=== PATIENT | male | born 1965 | race Hispanic/Latino ===

== ENCOUNTER → 2018-04-07 | Outpatient (CLI) | payer OTHER ==
[~2018-04-07] MED LIST: AEC81 PO; AMLO5TAB7 PO; ATOR40TA69 PO; CITA-107 PO; CLOP75TA32 PO; GLIP10TA9 PO; HYDR12.530 PO; LEVO25TA54 PO; METF-444 PO; METO-408 PO; NITR0.4T SL; POTA-79 PO; RANO500T3 PO; VALS80TA30 PO
== END | disposition home or self-care (01) ==
LOC: OIH 10:10
PROVIDERS: ATTEND Internal Medicine Cardiovascular Disease
DX: M47.894 Other spondylosis, thoracic region (principal); I25.2 Old myocardial infarction; R06.09 Other forms of dyspnea
CPT/HCPCS: 71046

== ENCOUNTER → 2018-10-22 | Outpatient (CLI) | payer MEDICARE, OTHER ==
[~2018-10-22] MED LIST changes: +ALPR1TAB7 PO; -AMLO5TAB7 PO; -ATOR40TA69 PO; -CITA-107 PO; +EMPA25TA PO; +ESCI20TA36 PO; -HYDR12.530 PO; +LAMO25TA9 PO; +LISI10TA7 PO; -NITR0.4T SL; -POTA-79 PO; +TAMS0.4C32 PO; +TRAZ-185 PO; -VALS80TA30 PO
== END | disposition home or self-care (01) ==
LOC: RAH 08:50
PROVIDERS: ATTEND Internal Medicine
DX: I11.9 Hypertensive heart disease without heart failure (principal); Z95.1 Presence of aortocoronary bypass graft
CPT/HCPCS: 93306

== ENCOUNTER 2019-02-12 10:29 | Emergency (ER) | payer MEDICARE ==
[2019-02-12 10:45] LABS: BASOPHILS % (AUTO) 0.9 % (0.0-5.0); EOSINOPHILS % (AUTO) 2.2 % (0.0-8.0); LYMPHOCYTES % (AUTO) 16.7 % (21.0-51.0); MEAN CORPUSCULAR HEMOGLOBIN 27.1 pg (27.0-33.0); MEAN CORPUSCULAR HGB CONC 33.3 g/dL (32.0-36.0); MEAN CORPUSCULAR VOLUME 81.4 fL (79-99); MONOCYTES % (AUTO) 7.7 % (3.0-13.0); NEUTROPHILS % (AUTO) 72.5 % (40.0-77.0); PLATELET COUNT (AUTO) 249 K/uL (130-400); RED BLOOD CELL COUNT(AUTO) 4.79 MIL/uL (4.50-6.20); RED CELL DISTRIBUTION WIDTH 16.1 % (11.0-15.5); WHITE BLOOD COUNT (AUTO) 9.6 K/uL (4.8-10.8)
[2019-02-12 10:55] LABS: CREATININE 1.6 mg/dL (0.5-1.5); POTASSIUM 5.6 mmol/L (3.5-5.1)
[2019-02-12 10:58] LABS: INR 0.93 (0.85-1.15); PARTIAL THROMBOPLASTIN TIME 24.5 SEC (26.3-35.5); PROTHROMBIN TIME 9.8 SEC (9.6-11.6)
[2019-02-12 11:00] LABS: ALBUMIN 3.4 g/dL (3.5-5.0); BILIRUBIN,DIRECT 0.1 mg/dL (0.0-0.3); BILIRUBIN,TOTAL 0.5 mg/dL (0.2-1.0); TOTAL PROTEIN, SERUM 7.1 g/dL (6.0-8.3)
[2019-02-12 12:01] LABS: APPEARANCE,URINE Clear (CLEAR); BILIRUBIN,URINE Negative (NEGATIVE); COLOR,URINE Yellow (YELLOW); GLUCOSE, URINE (UA) >=1000 mg/dL (NEGATIVE); KETONES,URINE Negative (NEGATIVE); LEUKOCYTE ESTERASE ,URINE Negative (NEGATIVE); NITRATE,URINE Negative (NEGATIVE); OCCULT BLOOD,URINE Negative (NEGATIVE); PROTEIN,URINE Negative (NEGATIVE)
[2019-02-12 12:23] LABS: BACTERIA,URINE None Seen /HPF (None Seen); RBC,URINE None Seen /HPF (0-1); SQUAMOUS EPITHELIAL CELL,UR None Seen /HPF (0-2); WBC,URINE None Seen /HPF (0-1)
[2019-02-12] MEDS ORDERED: LORAZEPAM 2 MG/ML 1 ML VIAL ONE (12:53)
== END 2019-02-12 18:41 | disposition short-term general hospital (02) ==
LOC: EDH 10:29
DX: I12.9 Hypertensive chronic kidney disease with stage 1 through stage 4 chronic kidney disease, or unspecified chronic kidney disease (principal); E11.22 Type 2 diabetes mellitus with diabetic chronic kidney disease; N18.9 Chronic kidney disease, unspecified; I63.9 Cerebral infarction, unspecified; E11.65 Type 2 diabetes mellitus with hyperglycemia; E78.5 Hyperlipidemia, unspecified; I25.10 Atherosclerotic heart disease of native coronary artery without angina pectoris; Z95.1 Presence of aortocoronary bypass graft
CPT/HCPCS: 36415; 70450; 70544; 70547; 70551; 71045; 80048; 80076; 81001; 82550; 82948; 83721; 84484; 85025; 85610; 85730; 93005; 96372; 99285; J2060

== ENCOUNTER → 2019-08-24 | Outpatient (CLI) | payer MEDICARE, OTHER ==
--- NOTE | 2019-08-24 14:20 | NUR ---
PATIENT HAS SCAB TO RIGHT LATERAL ANKLE; BETADINE CAST APPLIED ORDERED. Addendum: 08/24/19 at 1811 by NORMA MTZ RN/TINO Amended: Links added.
[2019-08-24 17:52] VITALS: BP 157/90
== END | disposition home or self-care (01) ==
LOC: WHH 13:30
PROVIDERS: ATTEND Specialist
DX: E11.621 Type 2 diabetes mellitus with foot ulcer (principal); I70.243 Atherosclerosis of native arteries of left leg with ulceration of ankle; L97.321 Non-pressure chronic ulcer of left ankle limited to breakdown of skin; E11.22 Type 2 diabetes mellitus with diabetic chronic kidney disease; I13.0 Hypertensive heart and chronic kidney disease with heart failure and stage 1 through stage 4 chronic kidney disease, or unspecified chronic kidney disease; N18.3 Chronic kidney disease, stage 3 (moderate); I50.9 Heart failure, unspecified; I25.10 Atherosclerotic heart disease of native coronary artery without angina pectoris; E78.5 Hyperlipidemia, unspecified; E66.9 Obesity, unspecified; F32.9 Major depressive disorder, single episode, unspecified; Z95.1 Presence of aortocoronary bypass graft; Z86.73 Personal history of transient ischemic attack (TIA), and cerebral infarction without residual deficits
CPT/HCPCS: 87070; 87077 ×3; 87186 ×3; A4450; A6260; G0463

== ENCOUNTER → 2019-08-31 | Outpatient (CLI) | payer OTHER ==
[~2019-08-31] MED LIST changes: +GENTAMICIN SULFATE 15 GM CREAM.GM. TP ONE; +LIDOCAINE/PRILOCAINE CREAM 5GM TUBE TP ONE
[2019-08-31 14:42] VITALS: BP 141/78
== END | disposition home or self-care (01) ==
LOC: WHH 13:30
PROVIDERS: ATTEND Specialist
DX: E11.622 Type 2 diabetes mellitus with other skin ulcer (principal); I70.243 Atherosclerosis of native arteries of left leg with ulceration of ankle; L97.321 Non-pressure chronic ulcer of left ankle limited to breakdown of skin; I25.10 Atherosclerotic heart disease of native coronary artery without angina pectoris; E11.22 Type 2 diabetes mellitus with diabetic chronic kidney disease; I13.0 Hypertensive heart and chronic kidney disease with heart failure and stage 1 through stage 4 chronic kidney disease, or unspecified chronic kidney disease; N18.3 Chronic kidney disease, stage 3 (moderate); I50.9 Heart failure, unspecified; E78.5 Hyperlipidemia, unspecified; E66.9 Obesity, unspecified; F32.9 Major depressive disorder, single episode, unspecified; Z95.1 Presence of aortocoronary bypass graft; Z86.73 Personal history of transient ischemic attack (TIA), and cerebral infarction without residual deficits
CPT/HCPCS: A6209; G0463; J3490

== ENCOUNTER → 2019-09-07 | Outpatient (CLI) | payer OTHER ==
[~2019-09-07] MED LIST changes: +ALIR150P SQ; +CITA40TA6 PO; +DICL50TA7 PO; +DULA1.5P SQ; +GABA300C PO; -GENTAMICIN SULFATE 15 GM CREAM.GM. TP ONE; +INSU100V37 SQ; +LIDOCAINE HCL 2% JELLY 5 ML TP ONE; -LIDOCAINE/PRILOCAINE CREAM 5GM TUBE TP ONE; +NITR0.4T SL; +RIVA2.5T PO; +ROSU5TAB12 PO
[2019-09-07 15:03] VITALS: BP 131/82
== END | disposition home or self-care (01) ==
LOC: WHH 13:00
PROVIDERS: ATTEND Specialist
DX: E11.622 Type 2 diabetes mellitus with other skin ulcer (principal); I70.243 Atherosclerosis of native arteries of left leg with ulceration of ankle; L97.322 Non-pressure chronic ulcer of left ankle with fat layer exposed; E11.22 Type 2 diabetes mellitus with diabetic chronic kidney disease; I13.0 Hypertensive heart and chronic kidney disease with heart failure and stage 1 through stage 4 chronic kidney disease, or unspecified chronic kidney disease; N18.3 Chronic kidney disease, stage 3 (moderate); I50.9 Heart failure, unspecified; I25.10 Atherosclerotic heart disease of native coronary artery without angina pectoris; E78.5 Hyperlipidemia, unspecified; E66.9 Obesity, unspecified; F32.9 Major depressive disorder, single episode, unspecified; Z95.1 Presence of aortocoronary bypass graft; Z86.73 Personal history of transient ischemic attack (TIA), and cerebral infarction without residual deficits
CPT/HCPCS: 11042; 11045; A6209

== ENCOUNTER → 2019-09-14 | Outpatient (CLI) | payer OTHER ==
[~2019-09-14] MED LIST changes: -ALIR150P SQ; -CITA40TA6 PO; -DICL50TA7 PO; -DULA1.5P SQ; -GABA300C PO; -INSU100V37 SQ; -NITR0.4T SL; -RIVA2.5T PO; -ROSU5TAB12 PO
[2019-09-14 15:27] VITALS: BP 140/90
== END | disposition home or self-care (01) ==
LOC: WHH 13:30
PROVIDERS: ATTEND Specialist
DX: E11.622 Type 2 diabetes mellitus with other skin ulcer (principal); I70.243 Atherosclerosis of native arteries of left leg with ulceration of ankle; L97.322 Non-pressure chronic ulcer of left ankle with fat layer exposed; E11.22 Type 2 diabetes mellitus with diabetic chronic kidney disease; I13.0 Hypertensive heart and chronic kidney disease with heart failure and stage 1 through stage 4 chronic kidney disease, or unspecified chronic kidney disease; N18.3 Chronic kidney disease, stage 3 (moderate); I50.9 Heart failure, unspecified; I25.10 Atherosclerotic heart disease of native coronary artery without angina pectoris; E78.5 Hyperlipidemia, unspecified; E66.9 Obesity, unspecified; F32.9 Major depressive disorder, single episode, unspecified; Z95.1 Presence of aortocoronary bypass graft; Z86.73 Personal history of transient ischemic attack (TIA), and cerebral infarction without residual deficits
CPT/HCPCS: 11042; 11045; 87070; 87077 ×2; 87186 ×2; A6209

== ENCOUNTER → 2019-09-28 | Outpatient (CLI) | payer OTHER ==
[~2019-09-28] MED LIST changes: -LIDOCAINE HCL 2% JELLY 5 ML TP ONE
[2019-09-28 15:58] VITALS: BP 115/79
== END | disposition home or self-care (01) ==
LOC: WHH 13:30
PROVIDERS: ATTEND Specialist
DX: E11.622 Type 2 diabetes mellitus with other skin ulcer (principal); I70.243 Atherosclerosis of native arteries of left leg with ulceration of ankle; L97.325 Non-pressure chronic ulcer of left ankle with muscle involvement without evidence of necrosis; E11.22 Type 2 diabetes mellitus with diabetic chronic kidney disease; I13.0 Hypertensive heart and chronic kidney disease with heart failure and stage 1 through stage 4 chronic kidney disease, or unspecified chronic kidney disease; N18.3 Chronic kidney disease, stage 3 (moderate); I50.9 Heart failure, unspecified; I25.10 Atherosclerotic heart disease of native coronary artery without angina pectoris; E78.5 Hyperlipidemia, unspecified; E66.9 Obesity, unspecified; F32.9 Major depressive disorder, single episode, unspecified; Z95.1 Presence of aortocoronary bypass graft; Z86.73 Personal history of transient ischemic attack (TIA), and cerebral infarction without residual deficits
CPT/HCPCS: G0463

== ENCOUNTER → 2019-10-12 | Outpatient (CLI) | payer OTHER ==
[~2019-10-12] MED LIST changes: +LIDOCAINE HCL 4% LTA SOL 4 ML VIAL TP ONE
[2019-10-12 15:35] VITALS: BP 128/72
--- NOTE | 2019-10-27 15:45 | NUR ---
10-27-2019 Correction made to documentation after review.
== END | disposition home or self-care (01) ==
LOC: WHH 13:30
PROVIDERS: ATTEND Specialist
DX: E11.622 Type 2 diabetes mellitus with other skin ulcer (principal); I70.243 Atherosclerosis of native arteries of left leg with ulceration of ankle; L97.325 Non-pressure chronic ulcer of left ankle with muscle involvement without evidence of necrosis; E11.22 Type 2 diabetes mellitus with diabetic chronic kidney disease; I13.0 Hypertensive heart and chronic kidney disease with heart failure and stage 1 through stage 4 chronic kidney disease, or unspecified chronic kidney disease; N18.3 Chronic kidney disease, stage 3 (moderate); I50.9 Heart failure, unspecified; I25.10 Atherosclerotic heart disease of native coronary artery without angina pectoris; E78.5 Hyperlipidemia, unspecified; E66.9 Obesity, unspecified; F32.9 Major depressive disorder, single episode, unspecified; Z95.1 Presence of aortocoronary bypass graft; Z86.73 Personal history of transient ischemic attack (TIA), and cerebral infarction without residual deficits
CPT/HCPCS: 11042; 11045; A6209

== ENCOUNTER → 2019-10-26 | Outpatient (CLI) | payer OTHER ==
[~2019-10-26] MED LIST changes: -LIDOCAINE HCL 4% LTA SOL 4 ML VIAL TP ONE
[2019-10-26 15:32] VITALS: BP 136/90
== END | disposition home or self-care (01) ==
LOC: WHH 13:30
PROVIDERS: ATTEND Specialist
DX: I70.243 Atherosclerosis of native arteries of left leg with ulceration of ankle (principal); E11.622 Type 2 diabetes mellitus with other skin ulcer; L97.325 Non-pressure chronic ulcer of left ankle with muscle involvement without evidence of necrosis; E11.22 Type 2 diabetes mellitus with diabetic chronic kidney disease; I13.0 Hypertensive heart and chronic kidney disease with heart failure and stage 1 through stage 4 chronic kidney disease, or unspecified chronic kidney disease; N18.3 Chronic kidney disease, stage 3 (moderate); I50.9 Heart failure, unspecified; E11.51 Type 2 diabetes mellitus with diabetic peripheral angiopathy without gangrene; I25.10 Atherosclerotic heart disease of native coronary artery without angina pectoris; E78.5 Hyperlipidemia, unspecified; E66.9 Obesity, unspecified; F32.9 Major depressive disorder, single episode, unspecified; Z95.1 Presence of aortocoronary bypass graft; Z86.73 Personal history of transient ischemic attack (TIA), and cerebral infarction without residual deficits
CPT/HCPCS: G0463

== ENCOUNTER → 2019-11-09 | Outpatient (CLI) | payer OTHER ==
[~2019-11-09] MED LIST changes: +ALIR150P SQ; +CITA40TA6 PO; +DICL50TA7 PO; +DULA1.5P SQ; +GABA300C PO; +INSU100V37 SQ; +NITR0.4T SL; +RIVA2.5T PO; +ROSU5TAB12 PO
[2019-11-09 14:54] VITALS: BP 126/68
== END | disposition home or self-care (01) ==
LOC: WHH 14:00
PROVIDERS: ATTEND Specialist
DX: I70.243 Atherosclerosis of native arteries of left leg with ulceration of ankle (principal); E11.622 Type 2 diabetes mellitus with other skin ulcer; L97.325 Non-pressure chronic ulcer of left ankle with muscle involvement without evidence of necrosis; E11.22 Type 2 diabetes mellitus with diabetic chronic kidney disease; I13.0 Hypertensive heart and chronic kidney disease with heart failure and stage 1 through stage 4 chronic kidney disease, or unspecified chronic kidney disease; N18.3 Chronic kidney disease, stage 3 (moderate); I50.9 Heart failure, unspecified; E11.51 Type 2 diabetes mellitus with diabetic peripheral angiopathy without gangrene; I25.10 Atherosclerotic heart disease of native coronary artery without angina pectoris; E78.5 Hyperlipidemia, unspecified; E66.9 Obesity, unspecified; F32.9 Major depressive disorder, single episode, unspecified; Z95.1 Presence of aortocoronary bypass graft; Z86.73 Personal history of transient ischemic attack (TIA), and cerebral infarction without residual deficits
CPT/HCPCS: 11042; 11045; 87070; 87077; 87186

== ENCOUNTER → 2020-02-03 | Outpatient (CLI) | payer OTHER ==
--- NOTE | 2020-01-24 11:07 | NUR ---
PROCEDURE WAS CX FROM SCHEDULE DOS
[~2020-02-03] MED LIST changes: -ALIR150P SQ; +AMINOPHYLLINE 500 MG in SODIUM CHLORIDE 0.9% 100 ML IV SCH; +AMINOPHYLLINE 500 MG/20 ML VIAL IV SCH; -CITA40TA6 PO; -DICL50TA7 PO; -DULA1.5P SQ; -GABA300C PO; -INSU100V37 SQ; -NITR0.4T SL; +REGADENOSON 0.4 MG/5 ML PF SYG IVP SCH; -RIVA2.5T PO; -ROSU5TAB12 PO
[2020-02-03 11:23] VITALS: BP 148/92
[2020-02-03 11:25] VITALS: BP 144/90
[2020-02-03 11:28] VITALS: BP 125/76
--- NOTE | 2020-02-03 11:30 | NUR ---
PT WITH COMPLAINTS OF TIGHTNESS AND PAIN TO JAW REMAINING IMMEDIATELY POST LEXISCAN, B/P 144/90 P 98 AMINOPHYLLINE 50MG GIVEN SLOW IV PUSH @ 1525. 1121 PT REPORTS ALL SYMPTOMS FROM LEXISCAN HAVE SUBSIDED. B/P 125/76 P 87
== END | disposition home or self-care (01) ==
LOC: SHCH 08:56
PROVIDERS: ATTEND Internal Medicine Cardiovascular Disease
DX: R07.9 Chest pain, unspecified (principal)
CPT/HCPCS: 78452; 93017; 96374; A9500 ×2; J2785; J0280

== ENCOUNTER 2020-03-16 09:17 | Observation (INO) | payer OTHER ==
[2020-03-14 12:22] LABS: BASOPHILS % (AUTO) 0.6 % (0.0-5.0); EOSINOPHILS % (AUTO) 3.7 % (0.0-8.0); HEMATOCRIT 41.5 % (42-54); LYMPHOCYTES % (AUTO) 25.5 % (21.0-51.0); MEAN CORPUSCULAR HEMOGLOBIN 25.9 pg (27.0-33.0); MEAN CORPUSCULAR HGB CONC 30.8 g/dL (32.0-36.0); MONOCYTES % (AUTO) 7.6 % (3.0-13.0); NEUTROPHILS % (AUTO) 62.4 % (40.0-77.0); PLATELET COUNT (AUTO) 321 K/uL (130-400); RED BLOOD CELL COUNT(AUTO) 4.94 MIL/uL (4.50-6.20); RED CELL DISTRIBUTION WIDTH 15.5 % (11.0-15.5)
[2020-03-14 12:25] LABS: APPEARANCE,URINE Clear (CLEAR); BILIRUBIN,URINE Negative (NEGATIVE); COLOR,URINE Yellow (YELLOW); GLUCOSE, URINE (UA) >=1000 mg/dL (NEGATIVE); KETONES,URINE Negative (NEGATIVE); LEUKOCYTE ESTERASE ,URINE Negative (NEGATIVE); NITRATE,URINE Negative (NEGATIVE); OCCULT BLOOD,URINE Negative (NEGATIVE); PROTEIN,URINE Negative (NEGATIVE)
[2020-03-14 12:38] LABS: BACTERIA,URINE Rare /HPF (None Seen); RBC,URINE 0-1 /HPF (0-1); SQUAMOUS EPITHELIAL CELL,UR Rare /HPF (0-2); WBC,URINE 0-1 /HPF (0-1)
[2020-03-14 12:59] LABS: PARTIAL THROMBOPLASTIN TIME 25.9 SEC (26.3-35.5)
[2020-03-14 13:08] LABS: INR 0.9 (0.85-1.15); PROTHROMBIN TIME 9.8 SEC (9.6-11.6)
[2020-03-14 13:22] LABS: CREATININE 1.5 mg/dL (0.5-1.5); POTASSIUM 5.2 mmol/L (3.5-5.1)
[2020-03-15 11:47] VITALS: BP 181/98
--- NOTE | 2020-03-15 16:00 | NUR ---
RE: ABNORMAL LABS REPORTED ABNORMAL LAS TO DEEPAK ALLEN (K 5.2, BUN 24, CREAT 1.5, HGB 12.8, HCT 41.5). RECEIVED ORDERS TO REDRAW POTASSIUM IN AM.
[2020-03-16] VITALS (12 sets, daily range): BP systolic 108–140; BP diastolic 60–91
[~2020-03-16] VITALS: Ht 175.3 cm; Wt 112.5 kg
[~2020-03-16 09:17] MED LIST changes: -AEC81 PO; +ALIR150P SQ; -ALPR1TAB7 PO; -AMINOPHYLLINE 500 MG in SODIUM CHLORIDE 0.9% 100 ML IV SCH; -AMINOPHYLLINE 500 MG/20 ML VIAL IV SCH; +CITA40TA6 PO; +DICL50TA7 PO; +DULA1.5P SQ; -ESCI20TA36 PO; +GABA300C PO; +INSU100V37 SQ; -LAMO25TA9 PO; +NITR0.4T SL; -REGADENOSON 0.4 MG/5 ML PF SYG IVP SCH; +RIVA2.5T PO; +ROSU5TAB12 PO; +SODIUM CHLORIDE 0.9% 1000ML 1,000 ML IV ONE; +SODIUM CHLORIDE 0.9% 500ML 500 ML IV SCH; -TAMS0.4C32 PO
--- NOTE | 2020-03-16 10:15 | NUR ---
SKIN ULCER TO LEFT LOWER EXTREMITY WITH DRESSING DRY AND INTACT. PT SEES DR HONG . WOUND CARE DONE EVERY 2 DAYS AT HOME. HX STROKE LEFT SIDED WEAKNESS . Addendum: 03/16/20 at 1018 by HARMEET STRANGE RN Amended: Links added.
[2020-03-16] MEDS ORDERED: SODIUM BICARB 50MEQ 50ML VIAL 50 ML ONE (12:19)
[2020-03-16] MEDS ORDERED: LIDOCAINE HCL 2% 20ML ONE (12:20)
[2020-03-16] MEDS ORDERED: IODIXANOL 320 MG/ML 100 ML VIAL ONE (12:20)
[2020-03-16] MEDS ORDERED: IOHEXOL 350 MG/ML 100ML INFUS..BTL IV ONE ×3 (12:20→13:34)
[2020-03-16] MEDS ORDERED: NITROGLYCERIN 2 MG/VIAL VIAL IV ONE (12:20)
--- NOTE | 2020-03-16 12:25 | NUR ---
PROCEDURE PT TAKEN TO LYFT DRIVER FOR SCHEDULED PROCEDURE. NO DISTRESS NOTED
[2020-03-16] MEDS ORDERED: MIDAZOLAM HCL 1 MG/ML 2ML VIAL ONE (12:33)
[2020-03-16] MEDS ORDERED: FENTANYL CITRATE PF 50 MCG/1 ML 2ML VIAL ONE (12:33)
[2020-03-16] MEDS ORDERED: BIVALIRUDIN 250 MG/VIAL IV ONE (13:34)
[2020-03-16] MEDS ORDERED: PRASUGREL HCL 10 MG TABLET ONE (14:05)
[2020-03-16] MEDS ORDERED: ASPIRIN 81MG TAB.CHEW ONE (14:08)
--- NOTE | 2020-03-16 14:30 | NUR ---
post received pt back from rn cardiac cath, s/p c stent to distal RCA. Right groin with perclose closure device, dressing dry and intact. no bleeding hematoma. see post cath assessment. vs stable on arrival. pt instructed to maintain bedrest. call light within reach.
--- NOTE | 2020-03-16 15:30 | NUR ---
transfer pt transferred to room 406, report given to Rhea Rn , right groin with no bleeding or hematoma. bs was low post procedure given orange juice recheck bs 91 pt asymtomatic.
[2020-03-16] MEDS ORDERED: FUROSEMIDE 10 MG/ML 2ML VIAL ONE (15:35)
[2020-03-16] MEDS ORDERED: NITROGLYCERIN 0.4 MG SL TAB SL PRN (17:00)
[2020-03-16] MEDS ORDERED: TRAZODONE HCL 50 MG TAB PO PRN (17:00)
[2020-03-16] MEDS ORDERED: DICLOFENAC 50MG PO PRN (17:00)
[2020-03-16] MEDS ORDERED: ROSUVASTATIN 5MG PO SCH (21:00)
[2020-03-16] MEDS: RIVAROXABAN 2.5 MG TABLET PO SCH (22:16)
[2020-03-16] MEDS: RANOLAZINE 500 MG TAB.SR.12H PO SCH (22:16)
[2020-03-16] MEDS: METOPROLOL SUCCINATE 50 MG TAB.SR.24H PO SCH (22:17)
[2020-03-16] MEDS: GABAPENTIN 300 MG CAPSULE PO SCH (22:17)
[2020-03-17] VITALS: BP 130/84
[2020-03-17 04:00] VITALS: BP 140/70
[2020-03-17] MEDS: GABAPENTIN 300 MG CAPSULE PO SCH (05:42)
--- NOTE | 2020-03-17 05:47 | NUR ---
Right groin cardiac cath site remained soft with no hematoma; dressing clean, dry and intact. BLE/ankles with wound dressings both dry and intact. No acute distress this shift. Patient is in stable condition.
[2020-03-17 06:14] LABS: CREATININE 1.6 mg/dL (0.5-1.5); POTASSIUM 4.6 mmol/L (3.5-5.1)
[2020-03-17] MEDS ORDERED: LEVOTHYROXINE 50 MCG TABLET PO SCH (06:30)
[2020-03-17] MEDS ORDERED: GLIPIZIDE 5 MG TABLET PO SCH (07:30)
[2020-03-17 08:06] VITALS: BP 121/52
[2020-03-17] MEDS ORDERED: JARDIANCE 25MG PO SCH (09:00)
[2020-03-17] MEDS ORDERED: TRESIBA 10 UNITS PO SCH (09:00)
[2020-03-17] MEDS ORDERED: PRASUGREL HCL 10 MG TABLET PO SCH (09:00)
[2020-03-17] MEDS ORDERED: LISINOPRIL 10 MG TABLET PO SCH (09:00)
[2020-03-17] MEDS ORDERED: CITALOPRAM 20 MG TABLET PO SCH (09:00)
[2020-03-17] MEDS: METOPROLOL SUCCINATE 50 MG TAB.SR.24H PO SCH (09:59)
[2020-03-17] MEDS: RIVAROXABAN 2.5 MG TABLET PO SCH (09:59)
[2020-03-17] MEDS: RANOLAZINE 500 MG TAB.SR.12H PO SCH (10:00)
[2020-03-17 12:13] VITALS: BP 141/75
[2020-03-23] MEDS ORDERED: TRULICITY 1.5MG SQ SCH (09:00)
[2020-03-30] MEDS ORDERED: PRALUENT SQ SCH (09:00)
== END 2020-03-17 12:00 | disposition home or self-care (01) ==
LOC: DAH 09:17 → DAHIP 09:18 → 4BH 15:34
PROVIDERS: ADMIT Internal Medicine Cardiovascular Disease; ATTEND Internal Medicine Cardiovascular Disease
DX: I25.709 Atherosclerosis of coronary artery bypass graft(s), unspecified, with unspecified angina pectoris (principal); I25.2 Old myocardial infarction; E11.22 Type 2 diabetes mellitus with diabetic chronic kidney disease; N18.30 Chronic kidney disease, stage 3 unspecified; I63.9 Cerebral infarction, unspecified; F41.9 Anxiety disorder, unspecified; G47.33 Obstructive sleep apnea (adult) (pediatric); F32.9 Major depressive disorder, single episode, unspecified; Z95.1 Presence of aortocoronary bypass graft; Z95.5 Presence of coronary angioplasty implant and graft; Z79.84 Long term (current) use of oral hypoglycemic drugs; Z79.899 Other long term (current) drug therapy
CPT/HCPCS: 36415 ×3; 71045; 80048 ×2; 81001; 82948 ×7; 84132; 85025; 85610; 85730; 93005; 93459; 94660 ×2; 96360; 96361; A4216; A4221; A4222; A4223 ×3; A4606; A4663; C1760; C1769 ×2; C1874; C1887; C1894 ×2; C9600; G0378 ×16; J0583; J1644; J1940; J2250; J3010; J3490 ×3; J7030; Q9965; Q9967 ×3; 99156; 99157

== ENCOUNTER 2021-02-15 16:04 | Emergency (ER) | payer OTHER ==
[2021-02-15] VITALS (10 sets, daily range): BP systolic 116–140; BP diastolic 62–80
[~2021-02-15] VITALS: Ht 172.7 cm; Wt 111.6 kg
[~2021-02-15 16:04] MED LIST changes: -ALIR150P SQ; +ALIR150P3 SQ; +ALPR1TAB7 PO; +ASPI-1005 PO; -CLOP75TA32 PO; -GABA300C PO; +Isosorbide Mono 60MG Sr Tab PO; -LEVO25TA54 PO; +LEVO50CA4 PO; +LISI10TA24 PO; -LISI10TA7 PO; -NITR0.4T SL; +PRAS10TA6 PO; -RANO500T3 PO; -RIVA2.5T PO; -SODIUM CHLORIDE 0.9% 1000ML 1,000 ML IV ONE; -SODIUM CHLORIDE 0.9% 500ML 500 ML IV SCH
[2021-02-15] MEDS ORDERED: ACETAMINOPHEN 500 MG TABLET PO ONE (16:30)
[2021-02-15] MEDS ORDERED: IOHEXOL-350 75 ML VIAL IV ONE (18:19)
[2021-02-15 18:53] LABS: BASOPHILS % (AUTO) 0.5 % (0.0-5.0); EOSINOPHILS % (AUTO) 1.6 % (0.0-8.0); HEMATOCRIT 39.7 % (42-54); LYMPHOCYTES % (AUTO) 21.8 % (21.0-51.0); MEAN CORPUSCULAR HEMOGLOBIN 23.8 pg (27.0-33.0); MEAN CORPUSCULAR VOLUME 79.6 fL (79-99); MONOCYTES % (AUTO) 7.7 % (3.0-13.0); NEUTROPHILS % (AUTO) 67.8 % (40.0-77.0); PLATELET COUNT (AUTO) 359 K/uL (130-400); RED BLOOD CELL COUNT(AUTO) 4.99 MIL/uL (4.50-6.20); RED CELL DISTRIBUTION WIDTH 17.3 % (11.0-15.5); WHITE BLOOD COUNT (AUTO) 10.6 K/uL (4.8-10.8)
[2021-02-15 19:04] LABS: CREATININE 1.7 mg/dL (0.5-1.5); POTASSIUM 4.5 mmol/L (3.5-5.1)
[2021-02-15 19:09] LABS: ALBUMIN 3.8 g/dL (3.5-5.0); BILIRUBIN,TOTAL 0.4 mg/dL (0.2-1.0); TOTAL PROTEIN, SERUM 7.7 g/dL (6.0-8.3)
[2021-02-15] MEDS ORDERED: HYDROCODONE/ACETAMINOPHEN 5/325 MG TAB PO ONE (20:00)
== END 2021-02-15 19:38 | disposition home or self-care (01) ==
LOC: EDH 16:04
DX: M25.552 Pain in left hip (principal); E11.9 Type 2 diabetes mellitus without complications; F32.9 Major depressive disorder, single episode, unspecified; F41.9 Anxiety disorder, unspecified; I13.0 Hypertensive heart and chronic kidney disease with heart failure and stage 1 through stage 4 chronic kidney disease, or unspecified chronic kidney disease; E11.22 Type 2 diabetes mellitus with diabetic chronic kidney disease; N18.30 Chronic kidney disease, stage 3 unspecified; I50.9 Heart failure, unspecified; I25.10 Atherosclerotic heart disease of native coronary artery without angina pectoris; I25.2 Old myocardial infarction; Z79.02 Long term (current) use of antithrombotics/antiplatelets; Z79.4 Long term (current) use of insulin; Z79.82 Long term (current) use of aspirin; Z79.899 Other long term (current) drug therapy; Z95.1 Presence of aortocoronary bypass graft; Z86.73 Personal history of transient ischemic attack (TIA), and cerebral infarction without residual deficits
CPT/HCPCS: 36415; 70450; 71045; 72125; 73502; 74177; 80053; 85025; 93005; Q9967

== ENCOUNTER 2022-02-26 16:00 | Emergency (ER) | payer OTHER ==
[~2022-02-26] VITALS: Ht 172.7 cm; Wt 103.9 kg
[~2022-02-26 16:00] MED LIST changes: -ALIR150P3 SQ; +ALIR150P6 SQ; +CITA-108 PO; -CITA40TA6 PO
[2022-02-26] MEDS ORDERED: 0.9%NACL 1000ML 1,000 ML IV ONE (17:00)
[2022-02-26 17:04] LABS: BASOPHILS % (AUTO) 0.3 % (0.0-5.0); EOSINOPHILS % (AUTO) 3.6 % (0.0-8.0); HEMATOCRIT 41.3 % (42-54); LYMPHOCYTES % (AUTO) 21.6 % (21.0-51.0); MEAN CORPUSCULAR HGB CONC 31.7 g/dL (32.0-36.0); MEAN CORPUSCULAR VOLUME 81.9 fL (79-99); MONOCYTES % (AUTO) 7.8 % (3.0-13.0); NEUTROPHILS % (AUTO) 66.3 % (40.0-77.0); PLATELET COUNT (AUTO) 270 K/uL (130-400); RED BLOOD CELL COUNT(AUTO) 5.04 MIL/uL (4.50-6.20); RED CELL DISTRIBUTION WIDTH 21.3 % (11.0-15.5); WHITE BLOOD COUNT (AUTO) 9.5 K/uL (4.8-10.8)
[2022-02-26 17:12] LABS: CREATININE 1.4 mg/dL (0.5-1.5)
[2022-02-26 17:21] LABS: ALBUMIN 3.6 g/dL (3.5-5.0); TOTAL PROTEIN, SERUM 7.6 g/dL (6.0-8.3)
[2022-02-26 18:10] LABS: APPEARANCE,URINE CLEAR (CLEAR); BILIRUBIN,URINE NEGATIVE (NEGATIVE); COLOR,URINE COLORLESS (YELLOW); GLUCOSE, URINE (UA) >=1000 mg/dL (NEGATIVE); KETONES,URINE NEGATIVE (NEGATIVE); LEUKOCYTE ESTERASE ,URINE NEGATIVE Leu/uL (NEGATIVE); NITRATE,URINE NEGATIVE (NEGATIVE); OCCULT BLOOD,URINE NEGATIVE (NEGATIVE); PROTEIN,URINE NEGATIVE (NEGATIVE); UROBILINOGEN,URINE 0.2 mg/dL (0.2-1.0)
[2022-02-26 18:14] LABS: RBC,URINE 0-1 /HPF (0-1); WBC,URINE 0-1 /HPF (0-1)
[2022-02-26 18:29] VITALS: BP 140/82
== END 2022-02-26 19:13 | disposition home or self-care (01) ==
LOC: EDH 16:00
DX: R42 Dizziness and giddiness (principal); I25.10 Atherosclerotic heart disease of native coronary artery without angina pectoris; I11.0 Hypertensive heart disease with heart failure; I50.9 Heart failure, unspecified; E11.9 Type 2 diabetes mellitus without complications; J44.9 Chronic obstructive pulmonary disease, unspecified; E78.00 Pure hypercholesterolemia, unspecified; I25.2 Old myocardial infarction; Z98.890 Other specified postprocedural states; Z79.899 Other long term (current) drug therapy; Z79.84 Long term (current) use of oral hypoglycemic drugs; Z79.4 Long term (current) use of insulin; Z79.82 Long term (current) use of aspirin
CPT/HCPCS: 99285; 93880; 96360; 70450; 93971; 84484; 80053; 85025; 81001; 36415; 93005; J7030

== ENCOUNTER → 2024-03-03 | Outpatient (CLI) | payer OTHER ==
[~2024-03-03] MED LIST changes: -ALIR150P6 SQ; -ALPR1TAB7 PO; +AMOX1TAB16 PO; +APIX2.5T PO; +ATOR40TA69 PO; +CLOP-31 PO; +CLOP75TA32 PO; -DICL50TA7 PO; +DOXY100T2 PO; -DULA1.5P SQ; -INSU100V37 SQ; -LEVO50CA4 PO; +LEVO75 PO; -LISI10TA24 PO; -METF-444 PO; +METF-910 PO; -METO-408 PO; +METO50TA18 PO; +NITR0.4T50 SL; +PANT40TA PO; -PRAS10TA6 PO; +RANO500T2 PO; -ROSU5TAB12 PO; -TRAZ-185 PO
[2024-03-03 12:26] LABS: ALBUMIN 3.8 g/dL (3.5-5.0); BILIRUBIN,TOTAL 0.4 mg/dL (0.2-1.0); CREATININE 1.5 mg/dL (0.5-1.3); TOTAL PROTEIN, SERUM 7.8 g/dL (6.0-8.3)
== END | disposition home or self-care (01) ==
LOC: LAB 08:20
PROVIDERS: ATTEND Internal Medicine Cardiovascular Disease
DX: I11.0 Hypertensive heart disease with heart failure (principal); I50.32 Chronic diastolic (congestive) heart failure; E78.2 Mixed hyperlipidemia
CPT/HCPCS: 36415; 80053; 80061

== ENCOUNTER → 2024-07-28 | Outpatient (CLI) | payer OTHER ==
[~2024-07-28] MED LIST changes: +GLIP10TA16 PO; -GLIP10TA9 PO
[2024-07-28 12:49] LABS: ALBUMIN 3.9 g/dL (3.5-5.0); BILIRUBIN,TOTAL 0.3 mg/dL (0.2-1.0); CREATININE 1.4 mg/dL (0.5-1.3); POTASSIUM 4.8 mmol/L (3.5-5.1); TOTAL PROTEIN, SERUM 7.7 g/dL (6.0-8.3)
== END | disposition home or self-care (01) ==
LOC: LAB 10:10
PROVIDERS: ATTEND Internal Medicine Cardiovascular Disease
DX: I11.0 Hypertensive heart disease with heart failure (principal); I50.32 Chronic diastolic (congestive) heart failure; E78.2 Mixed hyperlipidemia
CPT/HCPCS: 36415; 80053; 80061

== ENCOUNTER → 2024-08-10 | Outpatient (CLI) | payer OTHER ==
--- NOTE | 2024-08-10 11:37 | HMCIMG ---
PORTABLE CHEST RADIOGRAPH INDICATION: DYSPNEA ON EXERTION COMPARISON: 01/29/2024 FINDINGS: Median sternotomy wires are in appropriate alignment. Shallow inspiration. Heart size is normal. Mild calcific plaque is present along the aortic arch teresa. The pulmonary vascularity and left hilum appear normal. Right perihilar linear scarring. No abnormal pulmonary parenchymal opacity or consolidation identified. No significant pleural effusion noted. No pneumothorax detected. IMPRESSION: Shallow inspiration without radiographic evidence for any acute cardiopulmonary process.
== END | disposition home or self-care (01) ==
LOC: RAH 10:17
PROVIDERS: ATTEND Internal Medicine Cardiovascular Disease
DX: J98.4 Other disorders of lung (principal); R06.09 Other forms of dyspnea; I70.0 Atherosclerosis of aorta; I35.8 Other nonrheumatic aortic valve disorders
CPT/HCPCS: 36415; 71046; 83880; 93306